=== PATIENT | male | born 1975 | race Caucasian/White ===

== ENCOUNTER 2017-11-08 18:59 | Emergency (ER) | payer BC, OTHER ==
[~2017-11-08] VITALS: Ht 177.8 cm; Wt 216.4 kg
[~2017-11-08 18:59] MED LIST: ASPCH81 PO; DLD2 PO; GLC5 PO; GLC500 PO; LISI-725 PO
[2017-11-08 19:01] VITALS: Ht 177.8 cm; Wt 216.4 kg
[2017-11-08] MEDS ORDERED: SODIUM CHLORIDE 0.9% 1000ML 1,000 ML IV STA (19:19)
--- NOTE | 2017-11-08 19:35 | EMERGENCY ROOM VISIT NOTE ---
History Report prepared by [place]: Stanislav Schmidt Under the Supervision of: Dr. Ivan Kuo D.O. First contact with patient: 19:04 Chief Complaint: ABNORMAL DIAGNOSTIC TESTING Stated Complaint: LRQ PAIN, ABNORMAL CT - PHYSICIAN REFERRED History of Present Illness The patient is a 42 year old male who presents to the Emergency Room with complaints of intermittent pain in his left side/left flank that first onset in July, 4 months ago. The patient states that the pain onset in July, and he was then treated with an Antibiotic for a kidney infection by his primary care office. The pain was absent for the months of August, and returned again in September, 2 months ago. He has been searching for a facility with a CT scan able to accommodate his body habitus, and finally had a CT performed today at [facility]. On his drive home from [facility] he received a phone call telling him to get to an Emergency Department as soon as possible for an issue with the appendix on CT. He states that he is having some "tenderness" on the right side and has had a subjective fever over the past 3 nights. He also notes that he has had blood sugar levels into the 180s over the past couple of nights. He is on Metformin. He denies any nausea, vomiting, diarrhea, chest pain, or shortness of breath. Source of History: patient Onset: 4 months [employer] Position: abdomen (left side), back (Left flank) Quality: other ("Tenderness" ) Timing: intermittent Associated Symptoms: No chest pain, No SOB, No nausea, No vomiting, No diarrhea Review of Systems See HPI for pertinent positives & negatives. A total of 10 systems reviewed and were otherwise negative. Past Medical & Surgical Medical Problems: (1) Diabetes (2) HTN (hypertension) Diabetes HTN (hypertension) Hx of hernia, colonoscopy. Family History Cancer Diabetes mellitus Heart disease Hypertension Kidney disease Kidney stones Social History Smoking Status: Never Smoker Marital Status: Housing Status: lives with family, lives with significant other Occupation Status: employed Current/Historical Medications Scheduled Buspirone Hcl (Buspirone Hcl), 10 MG PO TID Gabapentin (Neurontin), 400 MG PO TID Losartan Potassium (Cozaar), 25 MG PO DAILY Metformin Hcl (Glucophage), 1,000 MG PO BID [C-Pap], NA HS Scheduled PRN Tizanidine (Zanaflex), 4 MG PO TID PRN for Muscle Spasms Tramadol (Ultram), 50 MG PO TID PRN for Pain Allergies Coded Allergies: Latex (Unverified Adverse Reaction, Intermediate, ITCHY, SKIN IRRITATION, 10/02/10) Morphine (Unverified Adverse Reaction, Intermediate, ITCHY, 10/02/10) Physical Exam Vital Signs Date Time Temp Pulse Resp B/P (MAP) Pulse Ox O2 Delivery O2 Flow Rate FiO2 11/08/17 23:44 78 18 153/95 98 Room Air 11/08/17 22:15 78 20 152/89 97 Room Air 11/08/17 20:25 37.1 94 22 132/75 97 Room Air 11/08/17 19:01 37.1 96 18 184/121 96 Room Air Physical Exam GENERAL: Patient is awake, alert. Diaphoretic and anxious appearing. EYES: The conjunctivae are clear. The pupils are round and reactive. EARS, NOSE, MOUTH AND THROAT: The nose is without any evidence of any deformity. Mucous membranes are moist. Tongue is midline NECK: The neck is nontender and supple. RESPIRATORY: Normal respiratory effort is noted. There is no evidence of wheezing rhonchi or rales to auscultation. CARDIOVASCULAR: Tachycardic rate with a normal rhythm noted. There no murmurs rubs or gallops normal S1 normal S2 GASTROINTESTINAL: The abdomen is obese and soft. Bowel sounds are present in all quadrants. There is significant tenderness in the right upper and right lower abdomen, with guarding noted. BACK: No midline tenderness or or step-off noted range of motion in flexion extension as well as rotation no signs of muscle spasm noted. There is left flank tenderness to percussion. MUSCULOSKELETAL/EXTREMITIES: There is no evidence of gross deformity. Full range of motion is noted in the hips and shoulders. SKIN: Skin is diaphoretic and cool. There is no obvious evidence of any rash. There are no petechiae, pallor or cyanosis noted. NEUROLOGIC: Patient is awake alert and oriented x3. Medical Decision & Procedures Laboratory Results 11/08/17 19:31 Red Blood Count 4.79, Mean Corpuscular Volume 88.9, Mean Corpuscular Hemoglobin 29.9, Mean Corpuscular Hemoglobin Concent 33.6, Mean Platelet Volume 9.2, Neutrophils (%) (Auto) 74.9, Lymphocytes (%) (Auto) 14.4, Monocytes (%) (Auto) 8.8, Eosinophils (%) (Auto) 1.2, Basophils (%) (Auto) 0.3, Neutrophils # (Auto) 13.11, Lymphocytes # (Auto) 2.51, Monocytes # (Auto) 1.54, Eosinophils # (Auto) 0.21, Basophils # (Auto) 0.05 11/08/17 19:31 Test 11/08/17 19:31 White Blood Count 17.49 K/uL (4.8-10.8) Red Blood Count 4.79 M/uL (4.7-6.1) Hemoglobin 14.3 g/dL (14.0-18.0) Hematocrit 42.6 % (42-52) Mean Corpuscular Volume 88.9 fL (80-100) Mean Corpuscular Hemoglobin 29.9 pg (25-34) Mean Corpuscular Hemoglobin Concent 33.6 g/dl (32-36) Platelet Count 489 K/uL (130-400) Mean Platelet Volume 9.2 fL (7.4-10.4) Neutrophils (%) (Auto) 74.9 % Lymphocytes (%) (Auto) 14.4 % Monocytes (%) (Auto) 8.8 % Eosinophils (%) (Auto) 1.2 % Basophils (%) (Auto) 0.3 % Neutrophils # (Auto) 13.11 K/uL (1.4-6.5) Lymphocytes # (Auto) 2.51 K/uL (1.2-3.4) Monocytes # (Auto) 1.54 K/uL (0.11-0.59) Eosinophils # (Auto) 0.21 K/uL (0-0.5) Basophils # (Auto) 0.05 K/uL (0-0.2) RDW Standard Deviation 46.1 fL (36.4-46.3) RDW Coefficient of Variation 14.0 % (11.5-14.5) Immature Granulocyte % (Auto) 0.4 % Immature Granulocyte # (Auto) 0.07 K/uL (0.00-0.02) Prothrombin Time 10.2 SECONDS (9.0-12.0) Prothromb Time International Ratio 1.0 (0.9-1.1) Activated Partial Thromboplast Time 27.8 SECONDS (21.0-31.0) Partial Thromboplastin Ratio 1.1 Urine Color DK YELLOW Urine Appearance CLOUDY (CLEAR) Urine pH 5.0 (4.5-7.5) Urine Specific [place] 1.027 (1.000-1.030) Urine Protein TRACE (NEG) Urine Glucose (UA) NEG (NEG) Urine Ketones TRACE (NEG) Urine Occult Blood NEG (NEG) Urine Nitrite NEG (NEG) Urine Bilirubin NEG (NEG) Urine Urobilinogen NEG (NEG) Urine Leukocyte Esterase TRACE (NEG) Urine WBC (Auto) 5-10 /hpf (0-5) Urine RBC (Auto) 0-4 /hpf (0-4) Urine Hyaline Casts (Auto) 10-30 /lpf (0-5) Urine Epithelial Cells (Auto) >30 /lpf (0-5) Urine Bacteria (Auto) NEG (NEG) Urine Renal Epithelial Cells 0-5 /lpf (0-5) Anion Gap 9.0 mmol/L (3-11) Est Creatinine Clear Calc Drug Dose 151.4 ml/min Estimated GFR () 88.9 Estimated GFR (Non- 76.7 BUN/Creatinine Ratio 10.7 (10-20) Calcium Level 9.0 mg/dl (8.5-10.1) Magnesium Level 2.3 mg/dl (1.8-2.4) Total Bilirubin 0.4 mg/dl (0.2-1) Direct Bilirubin 0.2 mg/dl (0-0.2) Aspartate Amino Transf (AST/SGOT) 16 U/L (15-37) Alanine Aminotransferase (ALT/SGPT) 13 U/L (12-78) Alkaline Phosphatase 69 U/L (45-117) Troponin I < 0.015 ng/ml (0-0.045) Total Protein 9.2 gm/dl (6.4-8.2) Albumin 2.9 gm/dl (3.4-5.0) Lipase 103 U/L (73-393) Laboratory results per my review. Medications Administered Medications (Trade) Dose Ordered Sig/Jame Route Start Time Stop Time Status Last Admin Dose Admin Sodium Chloride 1,000 ml @ 999 mls/hr Q1H1M STAT IV 11/08/17 19:19 11/08/17 20:19 DC 11/08/17 19:40 999 MLS/HR Piperacillin Sod/ Tazobactam Sod (Zosyn Iv) 4.5 gm NOW STAT IV 11/08/17 20:04 11/08/17 20:06 DC 11/08/17 20:04 4.5 GM ECG Per My Interpretation Indication: abdominal pain, diaphoresis Rate (beats per minute): 98 Rhythm: normal sinus Findings: no acute ischemic change, no ectopy, other (No ESTEPHANIA/STD) ED Course 1907: The patient was evaluated in room C1B. A complete history and physical examination were performed. 1918: Ordered Sodium Chloride 1000 mL @ 999 mL/hr IV. 2003: Ordered Zosyn 4.5 gm IV. 2007: I discussed the case with Humble Thomas - [facility]. He will evaluate the patient. 2012: Humble Thomas has discussed the case with his attending and they will suggests to transfer the patient. 2126: I discussed the case with Dr. Flannery - [facility]. She will accept the patient. Medical Decision Prior records/ancillary studies reviewed. Triage Nursing notes reviewed. Differential diagnosis: Etiologies such as appendicitis, diverticulitis, PUD, biliary pathology, UTI, pancreatitis, obstruction, mesenteric ischemia, aortic pathology, infections, inflammatory bowel disease, renal colic, as well as others were entertained. The patient is a 42-year-old male who has a history of diabetes and morbid obesity who presented to the emergency department for an evaluation of lower abdominal pain. The patient initially started with left flank pain which had been ongoing for a few months. He was scheduled to have a CAT scan of his abdomen and pelvis but he needed to go to [facility] for this. The patient started having right sided abdominal pain over the last few days. He also noticed night time fevers. The fevers were subjective. The patient had a CT the abdomen and pelvis and was on his way home. He was called by his ordering physician and told to go to the closest emergency department because of an abnormality noted on the CAT scan. We were able to obtain a report of the CAT scan and apparently there were signs that could be consistent with ruptured appendicitis. I discussed patient's laboratory and radiographic studies with him. He was treated with IV fluids as well as IV antibiotics. On subsequent reevaluation he was feeling somewhat improved. I discussed his case with the on-call general surgical group. They were able to evaluate patient in the emergency department that felt given his body habitus was felt to be a better candidate for a tertiary center. I agree with this evaluation and this plan. I discussed this plan with the patient and he was agreeable as well. I discussed his case with the on-call general surgical group at [facility] and they were able to accept him for further surgical management and evaluation. The patient was transferred via private vehicle. The patient wished to go by private vehicle rather than be transferred by ambulance. He was sent with copies of his laboratory and radiographic reports. Medication Reconcilliation Current Medication List: was personally reviewed by me Blood Pressure Screening Patient's blood pressure: Elevated blood pressure Blood pressure disposition: Elevated BP felt to be situational Consults Time Called: 2003 Consulting Physician: Humble Olivo PA-C Returned Call: 2007 I discussed the case with Humble Olivo PA-C. He will evaluate the patient. Additional Consults: Time Called: 2123 Consulted Physician: Dr. Flannery [facility] Returned Call: 2126 Additional Comments: I discussed the case with Dr. Flannery - [facility]. She will accept the patient. Impression Primary Impression: Ruptured appendix Scribe Attestation The scribe's documentation has been prepared under my direction and personally reviewed by me in its entirety. I confirm that the note above accurately reflects all work, treatment, procedures, and medical decision making performed by me. Departure Information Dispostion Being Evaluated By Hospitalist Referrals Vick Vyas M.D. (PCP) Patient Instructions My [facility]
[2017-11-08 19:50] LABS: BASO % 0.3 %; BASO ABS # 0.05 K/uL (0-0.2); EOS % 1.2 %; EOS ABS # 0.21 K/uL (0-0.5); HEMATOCRIT 42.6 % (42-52); HEMOGLOBIN 14.3 g/dL (14.0-18.0); IG# 0.07 K/uL (0.00-0.02); LYMPH % 14.4 %; LYMPH ABS # 2.51 K/uL (1.2-3.4); MEAN CELL VOLUME 88.9 fL (80-100); MEAN CORPUSCULAR HEMOGLOBIN 29.9 pg (25-34); MEAN CORPUSCULAR HGB CONC 33.6 g/dl (32-36); MEAN PLATELET VOLUME 9.2 fL (7.4-10.4); MONO % 8.8 %; MONO ABS # 1.54 K/uL (0.11-0.59); NEUT % 74.9 %; NEUT ABS # 13.11 K/uL (1.4-6.5); PLATELET COUNT 489 K/uL (130-400); RED CELL DISTRIBUTION WIDTH SD 46.1 fL (36.4-46.3); WHITE BLOOD COUNT 17.49 K/uL (4.8-10.8)
[2017-11-08 20:00] LABS: PTT PATIENT 27.8 SECONDS (21.0-31.0)
[2017-11-08] MEDS ORDERED: PIPERACILLIN/TAZOBACTAM 4.5 GM/100ML D5W IV STA (20:04)
[2017-11-08] MEDS ORDERED: LOSA1TAB PO (20:05)
[2017-11-08] MEDS ORDERED: TIZA4CAP PO (20:05)
[2017-11-08] MEDS ORDERED: TRAM-10 PO (20:05)
[2017-11-08] MEDS ORDERED: GABA-1220 PO (20:05)
[2017-11-08] MEDS ORDERED: C-PAP (20:05)
[2017-11-08] MEDS ORDERED: METF-384 PO (20:05)
[2017-11-08] MEDS ORDERED: BUSP-8 PO (20:05)
[2017-11-08 20:10] LABS: ALBUMIN 2.9 gm/dl (3.4-5.0); ALKALINE PHOSPHATASE 69 U/L (45-117); ALT/SGPT 13 U/L (12-78); AST/SGOT 16 U/L (15-37); BLOOD UREA NITROGEN 12 mg/dl (7-18); CARBON DIOXIDE 26 mmol/L (21-32); CREATININE 1.16 mg/dl (0.60-1.40); GLUCOSE 157 mg/dl (70-99); LIPASE 103 U/L (73-393); POTASSIUM 3.6 mmol/L (3.5-5.1); SODIUM 138 mmol/L (136-145); TOTAL PROTEIN 9.2 gm/dl (6.4-8.2)
[2017-11-08 20:25] VITALS: TEMP 37.1
--- NOTE | 2017-11-08 20:39 | Surgery Consultation ---
Consultation Date of Consultation: Nov 08, 2017. Attending Physician: Reason for Consultation: perforated appendicitis History of Present Illness Patient is a 42M who presents to the ED tonight on request from [facility] due to a CT scan he had there today showing a perforated appendicitis. Patient reports he has had intermittent left side/flank pain for the past 4 months. Reports his doctors originally thought it was kidney stones or a kidney infection so they started him on antibiotics. his pain subsided but returned a few weeks later. They then thought it was musculoskeletal and prescribed some muscle relaxants which provided no relief. He got the CT scan today at [facility] to accommodate his large body habitus to further evaluate his left sided pain. He was told to goto the nearest ED once they found findings of perforated appendicitis. Patient does note he has had mild RLQ pain for the past 3 days and has have fevers the past two days except for today around early evening which have subsided with Motrin. Denies regular use of blood thinning or anticoagulant medications. PSHx significant for umbilical hernia repair w/ mesh in 2010. Denies N/V. Moving his bowels and urinating without issue. WBC 17.49. Patient last ate a light meal at 1730. Family History Cancer Diabetes mellitus Heart disease Hypertension Kidney disease Kidney stones Social History Smoking Status: Never Smoker Marital Status: Housing Status: lives with family, lives with significant other Occupation Status: employed Allergies Coded Allergies: Latex (Unverified Adverse Reaction, Intermediate, ITCHY, SKIN IRRITATION, 10/02/10) Morphine (Unverified Adverse Reaction, Intermediate, ITCHY, 10/02/10) Home Medications Scheduled Buspirone Hcl (Buspirone Hcl), 10 MG PO TID Gabapentin (Neurontin), 400 MG PO TID Losartan Potassium (Cozaar), 25 MG PO DAILY Metformin Hcl (Glucophage), 1,000 MG PO BID [C-Pap], NA HS Scheduled PRN Tizanidine (Zanaflex), 4 MG PO TID PRN for Muscle Spasms Tramadol (Ultram), 50 MG PO TID PRN for Pain Review of Systems Constitutional: + fever, No chills, No sweats Respiratory: No shortness of breath Cardiovascular: No chest pain Abdomen: + pain (RLQ), No nausea, No vomiting, No diarrhea, No constipation Genitourinary - Male: No hematuria, No dysuria Integumentary: No new/changing skin lesions, No color change Physical Exam Date Time Temp Pulse Resp B/P (MAP) Pulse Ox O2 Delivery O2 Flow Rate FiO2 11/08/17 20:25 37.1 94 22 132/75 97 Room Air 11/08/17 19:01 37.1 96 18 184/121 96 Room Air General Appearance: no apparent distress, + obese (BMI 68.4) Head: normocephalic, atraumatic ENT: hearing grossly normal Respiratory/Chest: no respiratory distress Abdomen/GI: soft, no organomegaly, + tenderness (RLQ, rebound tenderness in RLQ when palpating epigastric area.) Neurologic/Psych: alert, normal mood/affect, oriented x 3 Skin: normal color, warm/dry Laboratory Results Last 24 Hours Test 11/08/17 19:31 White Blood Count 17.49 K/uL Red Blood Count 4.79 M/uL Hemoglobin 14.3 g/dL Hematocrit 42.6 % Mean Corpuscular Volume 88.9 fL Mean Corpuscular Hemoglobin 29.9 pg Mean Corpuscular Hemoglobin Concent 33.6 g/dl Platelet Count 489 K/uL Mean Platelet Volume 9.2 fL Neutrophils (%) (Auto) 74.9 % Lymphocytes (%) (Auto) 14.4 % Monocytes (%) (Auto) 8.8 % Eosinophils (%) (Auto) 1.2 % Basophils (%) (Auto) 0.3 % Neutrophils # (Auto) 13.11 K/uL Lymphocytes # (Auto) 2.51 K/uL Monocytes # (Auto) 1.54 K/uL Eosinophils # (Auto) 0.21 K/uL Basophils # (Auto) 0.05 K/uL RDW Standard Deviation 46.1 fL RDW Coefficient of Variation 14.0 % Immature Granulocyte % (Auto) 0.4 % Immature Granulocyte # (Auto) 0.07 K/uL Prothrombin Time 10.2 SECONDS Prothromb Time International Ratio 1.0 Activated Partial Thromboplast Time 27.8 SECONDS Partial Thromboplastin Ratio 1.1 Urine Color DK YELLOW Urine Appearance CLOUDY Urine pH 5.0 Urine Specific [place] 1.027 Urine Protein TRACE Urine Glucose (UA) NEG Urine Ketones TRACE Urine Occult Blood NEG Urine Nitrite NEG Urine Bilirubin NEG Urine Urobilinogen NEG Urine Leukocyte Esterase TRACE Urine WBC (Auto) 5-10 /hpf Urine RBC (Auto) 0-4 /hpf Urine Hyaline Casts (Auto) 10-30 /lpf Urine Epithelial Cells (Auto) >30 /lpf Urine Bacteria (Auto) NEG Urine Renal Epithelial Cells 0-5 /lpf Sodium Level 138 mmol/L Potassium Level 3.6 mmol/L Chloride Level 103 mmol/L Carbon Dioxide Level 26 mmol/L Anion Gap 9.0 mmol/L Blood Urea Nitrogen 12 mg/dl Creatinine 1.16 mg/dl Est Creatinine Clear Calc Drug Dose 151.4 ml/min Estimated GFR () 88.9 Estimated GFR (Non- 76.7 BUN/Creatinine Ratio 10.7 Random Glucose 157 mg/dl Calcium Level 9.0 mg/dl Magnesium Level 2.3 mg/dl Total Bilirubin 0.4 mg/dl Direct Bilirubin 0.2 mg/dl Aspartate Amino Transf (AST/SGOT) 16 U/L Alanine Aminotransferase (ALT/SGPT) 13 U/L Alkaline Phosphatase 69 U/L Troponin I < 0.015 ng/ml Total Protein 9.2 gm/dl Albumin 2.9 gm/dl Lipase 103 U/L Assessment & Plan perforated appendicitis Findings discussed with Dr. Kuo and Dr. North. Imaging reviewed. Abdomen soft, non-distended TTP in RLQ w/ + rebound. afebrile. WBC 17.49. IV Zosyn started in ED. Recommend transfer to tertiary center given patient's body habitus in case surgical intervention is required. Arrangements per ED. Please contact with questions or concerns.
[2017-11-08 23:44] VITALS: BP 153/95; PULSE 78; O2SAT 98
== END 2017-11-09 00:28 | disposition short-term general hospital (02) ==
LOC: C.EDB 19:00 → C.EDC 11-09 00:28
DX: K35.2 Acute appendicitis with generalized peritonitis (principal); E11.9 Type 2 diabetes mellitus without complications; I10 Essential (primary) hypertension; Z79.899 Other long term (current) drug therapy; Z79.84 Long term (current) use of oral hypoglycemic drugs; Z91.040 Latex allergy status; Z88.5 Allergy status to narcotic agent